=== PATIENT | female | born 1990 | race Caucasian/White ===

== ENCOUNTER → 2018-08-27 | Outpatient (CLI) | payer BC ==
--- NOTE | 2018-08-27 10:14 | US ---
EXAMINATION TYPE: US abdomen complete DATE OF EXAM: 08/27/2018 COMPARISON: NONE CLINICAL HISTORY: R79.9 Abn blood chem, R94.5 Abn Liver func. EXAM MEASUREMENTS: Liver Length: 16.7 cm Gallbladder Wall: 0.1 cm CBD: 0.2 cm Spleen: 11.0 cm Right Kidney: 10.2 x 3.4 x 4.0 cm Left Kidney: 10.3 x 4.8 x 4.6 cm Pancreas: Obscured by bowel gas Liver: heterogenous Gallbladder: wnl Evidence for sonographic Irene's sign: No CBD: wnl Spleen: wnl Right Kidney: wnl Left Kidney: wnl Upper IVC: wnl Abd Aorta: wnl The visualized liver is heterogeneous. Evaluation for focal masses is suboptimal due to the heteroge neity. No surrounding ascites is seen. No intrahepatic ductal dilatation is noted. The intrahepatic p ortion of the IVC and proximal abdominal aorta are within normal limits. There is no evidence of cho lelithiasis. Common bile duct is unremarkable. The visualized portions of the pancreas are homogeno us. The spleen is unremarkable. Kidneys are symmetric and free of hydronephrosis. No renal lesions are seen. IMPRESSION: Heterogeneous hyperechoic appearance could reflect product of diffuse fatty infiltration or underlying hepatocellular disease. Former is favored. Imaging guided random biopsy for tissue anal ysis can be performed if desired.
== END ==
LOC: RADUSWWP 09:27
PROVIDERS: ATTEND Family Medicine
DX: R79.9 Abnormal finding of blood chemistry, unspecified (principal); R94.5 Abnormal results of liver function studies; Z88.5 Allergy status to narcotic agent
CPT/HCPCS: 76700

== ENCOUNTER 2018-12-20 21:05 | Emergency (ER) | payer BC ==
[2018-12-20] MEDS ORDERED: methylPREDNISolone SOD SUCCI 125 MG/2 ML VIAL IM ONE (22:31)
[2018-12-20] MEDS ORDERED: IPRATROPIUM 0.5 MG/2.5 ML NEBU INHALATION STA (22:31)
[2018-12-20] MEDS ORDERED: ALBUTEROL NEBULIZED 2.5 MG/3 ML INHALATION STA (22:31)
--- NOTE | 2018-12-20 22:43 | XR ---
EXAM: XR Chest, 2 Views CLINICAL HISTORY: ITS.REASON XR Reason: Pain TECHNIQUE: Frontal and lateral views of the chest. COMPARISON: No relevant prior studies available. FINDINGS: Lungs: No consolidation or mass. Pleural space: No effusion. Heart: No cardiomegaly. Mediastinum: Unremarkable. Bones/joints: No acute findings. IMPRESSION: No acute cardiopulmonary process.
[2018-12-20 23:30] VITALS: RESP 18
--- NOTE | 2018-12-20 23:50 | ED ---
SOB HPI - General Source: patient Mode of arrival: ambulatory <Gabriella Huston - Last Filed: 12/21/18 01:32> <Yesenia Lea - Last Filed: 12/22/18 03:16> - General Chief Complaint: Shortness of Breath Stated Complaint: SOB Time Seen by Provider: 12/20/18 22:06 - History of Present Illness Initial Comments: 28-year-old female patient presents to the emergency department today for evaluation of shortness of breath and wheezing. Patient states she was at the [employer] yesterday when she began to have nasal congestion and shortness of breath. Patient states she does have history of asthma with her last exacerbation being last year. The patient states she has done 5 breathing treatments since 9pm last evening and they do not seem to be working. Patient states she has been using her rescue inhaler as well. Patient states she has had a dry cough with no sputum production. She denies any fevers or chills with this. Denies any chest pain. She denies any chance of . Patient denies any recent rash, chest pain, abdominal pain, nausea, vomiting, diarrhea, constipation, back pain, numbness, tingling, dizziness, weakness, hematuria, dysuria, urinary urgency, urinary frequency, headache, visual changes, or any other complaints. (Gabriella Huston) - Related Data Home Medications Medication Instructions Recorded Confirmed Albuterol Nebulized [Ventolin 2.5 mg INHALATION Q4H PRN 12/20/18 12/20/18 Nebulized] Albuterol Sulfate [Proair Hfa] 1 - 2 puff INHALATION RT-Q6H PRN 12/20/18 12/20/18 Fexofenadine HCl [Lulu Allergy] 180 mg PO DAILY 12/20/18 12/20/18 Introvale 1 tab PO DAILY 12/20/18 12/20/18 Previous Rx's Medication Instructions Recorded predniSONE 50 mg PO DAILY #5 tablet 12/21/18 Allergies Allergy/AdvReac Type Severity Reaction Status Date / Time No Known Allergies Allergy Verified 12/20/18 22:03 Review of Systems ROS Other: All systems not noted in ROS Statement are negative. <Gabriella Huston - Last Filed: 12/21/18 01:32> ROS Other: All systems not noted in ROS Statement are negative. <Yesenia Lea P - Last Filed: 12/22/18 03:16> ROS Statement: Those systems with pertinent positive or pertinent negative responses have been documented in the HPI. Past Medical History Past Medical History: Asthma History of Any Multi-Drug Resistant Organisms: None Reported Past Surgical History: No Surgical Hx Reported Past Psychological History: No Psychological Hx Reported Smoking Status: Never smoker Past Alcohol Use History: Occasional Past Drug Use History: None Reported <Gabriella Huston M - Last Filed: 12/21/18 01:32> General Exam General appearance: alert, in no apparent distress, other (Physical well- developed, well-nourished adult female patient in mild respiratory distress. Vital signs upon presentation are temperature 98.2F, pulse 122, respirations 2 2, blood pressure 133/83, pulse ox 95% on room air.) Eye exam: Present: normal appearance, PERRL, EOMI. Absent: scleral icterus, conjunctival injection, periorbital swelling ENT exam: Present: normal exam, normal oropharynx, mucous membranes moist Respiratory exam: Present: wheezes (Expiratory wheezing noted in the posterior lung jeronimo.), other (Tachypnea). Absent: normal lung sounds bilaterally, respiratory distress, rales, rhonchi, stridor Cardiovascular Exam: Present: normal rhythm, tachycardia, normal heart sounds. Absent: systolic murmur, diastolic murmur, rubs, gallop, clicks GI/Abdominal exam: Present: soft, normal bowel sounds. Absent: distended, tenderness, guarding, rebound, rigid Neurological exam: Present: alert, oriented X3, CN II-XII intact Psychiatric exam: Present: normal affect, normal mood Skin exam: Present: warm, dry, intact, normal color. Absent: rash <Gabriella Huston M - Last Filed: 12/21/18 01:32> Course Vital Signs 12/20/18 12/20/18 12/20/18 21:40 22:42 23:11 Temperature 98.2 F Pulse Rate 122 H 120 H 128 H Respiratory 22 Rate Blood Pressure 133/83 O2 Sat by Pulse 95 Oximetry 12/20/18 12/21/18 23:29 00:23 Temperature 97.6 F Pulse Rate 102 H 99 Respiratory 18 18 Rate Blood Pressure 141/89 137/81 O2 Sat by Pulse 99 99 Oximetry Medical Decision Making - Radiology Data Radiology results: report reviewed, image reviewed <Gabriella Huston - Last Filed: 12/21/18 01:32> <Yesenia Lea - Last Filed: 12/22/18 03:16> - Medical Decision Making 28-year-old female patient presents to the emergency department today for evaluation of shortness of breath and wheezing. Patient does have history of asthma with last exacerbation being one year ago. She denies any history of ever having been intubated. She did do 5 breathing treatments since 9 PM last night. Physical examination did reveal diffuse expiratory wheezing in the posterior lung jeronimo. Chest x-ray was obtained and showed no acute cardiopulmonary process. Patient did receive 7.5 mg of albuterol breathing treatment with Atrovent. Upon reevaluation patient is feeling much improved. Lungs are now clear to auscultation. She does feel comfortable being discharged home at this time. We will do a 5 day course of prednisone. She is instructed to continue home breathing treatments as directed. She is instructed to follow- up with her primary care physician for recheck in 1-2 days. Return parameters were discussed in detail. She verbalizes understanding and agrees this plan (Gabriella Huston) I was available for consultation in the emergency department. The history and physical exam were done by the Midlevel Provider. Medical decision making was done by the Midlevel Provider. The Midlevel Provider did not contact me for this patient's care. I was not directly involved in this patient's care. Chart was dictated using [employer] dictation software. Attempts were made to correct any dictation errors however some typographical errors may persist. (Yesenia Lea) - Radiology Data Two-view x-ray of the chest is obtained. Report was reviewed in its entirety. Impression by Dr. Mckee shows no acute cardiopulmonary process. (Gabriella Huston) Disposition Is patient prescribed a controlled substance at d/c from ED?: No Time of Disposition: 00:13 <Gabriella Huston - Last Filed: 12/21/18 01:32> <Yesenia Lea - Last Filed: 12/22/18 03:16> Clinical Impression: Asthma exacerbation Disposition: HOME SELF-CARE Condition: Good Instructions (If sedation given, give patient instructions): Asthma (ED) Additional Instructions: Complete steroid prescription in full. Continue breathing treatments at home as directed. Return to the emergency department immediately for any new, worsening, or concerning symptoms. Prescriptions: predniSONE 50 mg PO DAILY #5 tablet Referrals: Shane Rice Jr, DO [Primary Care Provider] - 1-2 days
[2018-12-21 00:24] VITALS: BP 137/81; PULSE 99; TEMP 97.6
== END 2018-12-21 00:23 | disposition home or self-care (01) ==
LOC: EC 21:05
DX: J45.901 Unspecified asthma with (acute) exacerbation (principal); R00.0 Tachycardia, unspecified; Z79.3 Long term (current) use of hormonal contraceptives; Z79.899 Other long term (current) drug therapy
CPT/HCPCS: 94640; 71046; 99285; 96372; J2930

== ENCOUNTER → 2019-03-30 | Outpatient (CLI) | payer BC ==
[2019-03-30 18:09] LABS: Gliadin AB IgA, Unit 0.2 U/mL
[2019-03-30 19:38] LABS: Codfish IgE <0.10 kU/L; Egg White IgE <0.10 kU/L
[2019-03-30 19:39] LABS: Peanut IgE <0.10 kU/L
[2019-03-30 19:40] LABS: Clam IgE <0.10 kU/L; Scallop IgE <0.10 kU/L; Shrimp IgE <0.10 kU/L; Soybean IgE 0.18 kU/L; Walnut IgE (Food) <0.10 kU/L
== END | disposition home or self-care (01) ==
LOC: LABWHC1 09:24
PROVIDERS: ATTEND Nurse Practitioner Family
DX: J02.9 Acute pharyngitis, unspecified (principal); K58.9 Irritable bowel syndrome, unspecified; R53.83 Other fatigue
CPT/HCPCS: 36415; 82785; 83516; 86003

== ENCOUNTER → 2019-06-10 | Outpatient (CLI) | payer BC ==
[2019-06-10 11:41] LABS: Albumin 4.7 g/dL (3.80-4.90); Albumin/Globulin Ratio 2.24 (1.60-3.17); Bilirubin, Conjugated 0.2 mg/dL (0.20-0.40); Bilirubin,Unconjugated 0.4 mg/dL; Globulin 2.1 g/dL (1.6-3.3); Total Bilirubin 0.6 mg/dL (0.2-1.2); Total Protein 6.8 g/dL (6.2-8.2)
== END | disposition home or self-care (01) ==
LOC: LABWHC1 06:34
PROVIDERS: ATTEND Internal Medicine
DX: R74.8 Abnormal levels of other serum enzymes (principal)
CPT/HCPCS: 36415; 80076

== ENCOUNTER → 2021-11-17 | Outpatient (CLI) | payer BC ==
--- NOTE | 2021-11-17 15:50 | CT ---
EXAMINATION TYPE: CT abdomen pelvis w con DATE OF EXAM: 11/17/2021 HISTORY: lower abdominal pain, abnormal pelvic US CT DLP: 1464mGycm Automated Exposure Control for Dose Reduction was Utilized. CONTRAST: CT scan of the abdomen and pelvis is performed with IV Contrast, patient injected with 100 mL of Isov ue 300. COMPARISON: Prior ultrasound abdomen August 27, 2018. Most recent abnormal pelvic ultrasound and/or report not available at time of dictation FINDINGS: LUNG BASES: No significant abnormality is appreciated. LIVER/GB: Visualized liver is heterogeneously hypodense consistent with diffuse fatty infiltration as seen on prior ultrasound. PANCREAS: No significant abnormality is seen. SPLEEN: No significant abnormality is seen. ADRENALS: No significant abnormality is seen. KIDNEYS: No significant abnormality is seen. BOWEL: Oral contrast reaches the level of the terminal ileum making evaluation of distal bowel slight ly suboptimal. There is no suspicious smaller or large bowel dilatation. In direct continuity with th e base of cecum there is low density structure with peripheral curvilinear calcifications measuring 3 .4 x 3.4 cm axial image 60 x 4.4 cm, length coronal image 46. Hounsfield units average 39. Normal ally endix not identified. UTERUS/ADNEXA: Anteverted uterus. Poor visualization of bilateral ovaries. No suspicious pelvic adnex al masses. LYMPH NODES: Prominent but subcentimeter lymph node inferior to right kidney axial image 44. OSSEOUS STRUCTURES: S-shaped scoliosis. Straightening of spine on sagittal images. OTHER: No significant additional abnormality is seen. IMPRESSION: Abnormal Right upper pelvic mass is favored of appendiceal origin over right ovarian orig in based on location. 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 Surgical referral is advised to further suzy giron.
== END | disposition home or self-care (01) ==
LOC: RADCTMAIN 13:58
PROVIDERS: ATTEND Obstetrics & Gynecology
DX: R19.09 Other intra-abdominal and pelvic swelling, mass and lump (principal); R93.89 Abnormal findings on diagnostic imaging of other specified body structures
CPT/HCPCS: 74177; Q9967